=== PATIENT | female | born 1965 | race Caucasian/White ===

== ENCOUNTER 2021-03-03 21:10 | Emergency (ER) | payer BC ==
[~2021-03-03] VITALS: Ht 162.6 cm; Wt 67.0 kg
--- NOTE | 2021-03-03 21:12 | PHYS DOC ---
Past History Past Medical History: Anxiety, Depression (JODIE HOLLOWAY MD) General Adult HPI: HPI: ".. I am having thoughts of suicide.. I had this problem before.. have been hospitalized for it... " Patient is a 56 year old female who presents with above hx and complaints anxiety and depression. Patient has had previous hospitalizations for alcohol withdrawal and suicidal ideation. No recent travel. No specific ill contacts. Currently has developed plan on how to commit suicide but has not actively engaged the plans. No history immunosuppression. (JODIE HOLLOWAY MD) Review of Systems: Review of Systems: Constitutional: Denies fever or chills Eyes: Denies change in visual acuity HENT: Denies nasal congestion or sore throat Respiratory: Denies cough or shortness of breath Cardiovascular: Denies chest pain or edema GI: Denies abdominal pain, nausea, vomiting, bloody stools or diarrhea : Denies dysuria Musculoskeletal: Denies back pain or joint pain Integument: Denies rash Neurologic: Denies headache, focal weakness or sensory changes Endocrine: Denies polyuria or polydipsia Lymphatic: Denies swollen glands Psychiatric: Planes of depression or anxiety (JODIE HOLLOWAY MD) Family History: Family History: Noncontributory to presentation (JODIE HOLLOWAY MD) Current Medications: Current Meds: See nursing for home meds (JODIE HOLLOWAY MD) Allergies: Allergies: No known drug allergies (JODIE HOLLOWAY MD) Physical Exam: PE: Constitutional: Well developed, well nourished, moderate emotional distress, non-toxic appearance. [] HENT: Normocephalic, atraumatic, bilateral external ears normal, oropharynx moist, no oral exudates, nose normal. [] Eyes: PERRLA, EOMI, conjunctiva mild injection, no discharge. [] Neck: Normal range of motion, no tenderness, supple, no stridor. [] Cardiovascular:Heart rate regular rhythm, no murmur [] Lungs & Thorax: Bilateral breath sounds equal apex auscultation [] Abdomen: Bowel sounds normal, soft, no tenderness, no masses, no pulsatile masses. [] Skin: Warm, dry, no erythema, no rash. [] Back: No tenderness, no CVA tenderness. [] Extremities: No tenderness, no cyanosis, no clubbing, ROM intact, no edema. [] Neurologic: Alert and oriented X 3, normal motor function, normal sensory function, no focal deficits noted. [] Psychologic: Affect anxious, depressed , judgement normal, . (JODIE HOLLOWAY MD) EKG: EKG: My interpretation of EKG shows a sinus tachycardia 102 beats per his minute. No other acute morphology or findings of STEMI of contralateral changes. Time of EKG is 21 59 hours . No findings of U waves[] (JODIE HOLLOWAY MD) Radiology/Procedures: Radiology/Procedures: [][address] [address] IMAGING REPORT Signed PATIENT: MARCO RANKIN GACCOUNT: [id number] : 1965 LOCATION: ER AGE: 56 SEX: F EXAM STATUS: REG ER ORD. PHYSICIAN: JODIE HOLLOWAY MD REASON: htn, tachy PROCEDURE: PORTABLE CHEST 1V EXAMINATION: XR CHEST 1V CLINICAL HISTORY: Hypertension, tachycardia EXAM DATE/TIME: 03/03/2021 10:31 PM COMPARISON: 05/06/2010 FINDINGS: Lines, Tubes, and Devices: None. Cardiomediastinal Silhouette: Within normal limits. Lungs and Pleura: No evidence of focal airspace consolidation or pleural effusion. Pulmonary vasculature unremarkable. Bones and Soft Tissues: No acute osseous abnormality. IMPRESSION: No evidence of acute cardiopulmonary abnormality or significant interval change. Electronically signed by: Melecio Burgess DO (03/04/2021 12:12 AM) [facility] DICTATED AND SIGNED BY: MELECIO BURGESS DO DATE: 03/04/2110 CC: JODIE HOLLOWAY MD; PCP,NO ~MTH0 0 (JODIE HOLLOWAY MD) Heart Score: C/O Chest Pain: No HEART Score for Chest Pain: HEART Score for Chest Pain Response (Comments) Value History Moderately Suspicious 1 ECG Nonspecific Repolarizatio 1 Age >45 - < 65 1 Risk Factors 1 or 2 Risk Factors 1 Troponin < Normal Limit 0 Total 4 Risk Factors: Risk Factors: DM, Current or recent (<one month) smoker, HTN, HLP, family history of CAD, obesity. Risk Scores: Score 0 - 3: 2.5% MACE over next 6 weeks - Discharge Home Score 4 - 6: 20.3% MACE over next 6 weeks - Admit for Clinical Observation Score 7 - 10: 72.7% MACE over next 6 weeks - Early Invasive Strategies (JODIE HOLLOWAY MD) C/O Chest Pain: N/A (SHERRY ZEPEDA MD) Course & Med Decision Making: Course & Med Decision Making Pertinent Labs and Imaging studies reviewed. (See chart for details) Patient's hypokalemia supplemented with 40 mEq IV and 40 mEq p.o. 0700 hrs. after supplementation. Pending COVID and supplemented potassium before Psych placement. Possible Bed opening and [facility] this Am after [address] Zepeda at shift change pending Psych bed opening and correction of potassium. Impression: 1. Depression 2. Anxiety 3 Suicidal Ideation 4. Hypokalemia 2.8 5. Mild Elevation of LFT AST 192/ALT 163 6. UTI [] (JODIE HOLLOWAY MD) Course & Med Decision Making Patient was given extended release potassium increase, discussed with pharmacy and will use the effervescent immediate release potassium to increase patient's potassium level. Patient states she has a history of hypokalemia Potassium 3-3.9, medically cleared for psychiatric facility, nurse to fax patient's information to [place]. Pending acceptance to facility at shift change. (SHERRY ZEPEDA MD) Dragon Disclaimer: Dragon Disclaimer: This electronic medical record was generated, in whole or in part, using a voice recognition dictation system. (JODIE HOLLOWAY MD) Departure Departure: Impression: Primary Impression: Suicidal ideations Additional Impression: Hypokalemia [facility] Condition: STABLE Referrals: PCP,NO (PCP) Patient Instructions: Hypokalemia-Brief Scripts Potassium Chloride (POTASSIUM CHLORIDE ) 20 Meq Tablet.er 20 MEQ PO DAILY for SUPPLEMENT for 5 Days, #5 TAB Prov: SHERRY ZEPEDA MD 03/04/21 Cephalexin (KEFLEX) 500 Mg Capsule 500 MG PO TID for uti, #30 CAP Prov: JODIE HOLLOWAY MD 03/04/21 Dragon Disclaimer This chart was dictated in whole or in part using Voice Recognition software in a busy, high-work load, and often noisy Emergency Department environment. It may contain unintended and wholly unrecognized errors or omissions. (JODIE HOLLOWAY MD) Dragon Disclaimer This chart was dictated in whole or in part using Voice Recognition software in a busy, high-work load, and often noisy Emergency Department environment. It may contain unintended and wholly unrecognized errors or omissions. (JODIE HOLLOWAY MD) JODIE HOLLOWAY MD Mar 03, 2021 21:12 SHERRY ZEPEDA MD Mar 04, 2021 16:20
[2021-03-03 22:20] LABS: BASO % 0 % (0-3); EOS % 0 % (0-3); HEMATOCRIT 39.9 % (36.0-47.0); HEMOGLOBIN 13.9 g/dL (12.0-15.5); LYMPH # 1.7 x10^3/uL (1.0-4.8); LYMPH % 17 % (24-48); MEAN CORPUSCULAR HEMOGLOBIN 33 pg (25-35); MEAN CORPUSCULAR HGB CONC 35 g/dL (31-37); MEAN CORPUSCULAR VOLUME 95 fL (79-100); MONO # 0.7 x10^3/uL (0.0-1.1); MONO % 7 % (0-9); NEUT # 7.8 x10^3uL (1.8-7.7); NEUT % 76 % (31-73); PLATELET COUNT 221 x10^3/uL (140-400); RED BLOOD COUNT 4.19 x10^6/uL (3.50-5.40); RED CELL DISTRIBUTION WIDTH 12.7 % (11.5-14.5); WHITE BLOOD COUNT 10.3 x10^3/uL (4.0-11.0)
[2021-03-03 22:28] LABS: CLARITY,URINE CLOUDY; COLOR,URINE AMBER
[2021-03-03 22:29] LABS: BILIRUBIN,URINE MOD (NEG); GLUCOSE,URINE NEG (NEG); NITRITE,URINE NEG (NEG); UROBILINOGEN,URINE 0.2 mg/dL (0.2 mg/dL)
[2021-03-03 22:30] LABS: BACTERIA,URINE MANY /HPF (0-FEW); BARBITURATES NEG (NEG); BENZODIAZEPINES NEG (NEG); CANNABINOIDS NEG (NEG); COCAINE NEG (NEG); METHADONE NEG (NEG); OPIATES NEG (NEG); PHENCYCLIDINE NEG (NEG); SQUAMOUS EPITHELIAL CELL,UR MOD /LPF; WBC,URINE >40 /HPF (0-4)
[2021-03-03 22:35] LABS: ALBUMIN 4.3 g/dL (3.4-5.0); CALCIUM 9.5 mg/dL (8.5-10.1); CREATININE 0.7 mg/dL (0.6-1.0); DIRECT BILIRUBIN 0.3 mg/dL (0.0-0.2); GFR 86.9; MAGNESIUM 2.4 mg/dL (1.8-2.4); TOTAL BILIRUBIN 0.9 mg/dL (0.2-1.0); TOTAL PROTEIN 8.1 g/dL (6.4-8.2)
[2021-03-03 22:40] LABS: AMPHETAMINE/METHAMPHETAMINE NEG (NEG); ETHANOL < 10 mg/dL (0-10); SALIC 2.2 mg/dL (2.8-20.0)
[2021-03-03 22:42] LABS: ACETAMIN < 2.0 mcg/mL (10-30); POTASSIUM 2.8 mmol/L (3.5-5.1)
--- NOTE | 2021-03-03 23:19 | NUR ---
Patient talking to Jeanie from the PAT team
--- NOTE | 2021-03-03 23:54 | EKG ---
[address] [address] Test Date: 2021-03-03 Test Time: 21:59:52 Pat Name: MARCO RANKIN Department: Room: Gender: F [employer]: MERRY : 1965 Requested By: JODIE HOLLOWAY Order Number: [id number] Reading MD: Rigo Jeronimo Measurements Intervals [place] Rate: 102 P: 22 DC: 112 QRS: 10 QRSD: 102 T: 39 QT: 350 QTc: 461 Interpretive Statements SINUS TACHYCARDIA Electronically Signed On 03-06-2021 12:56:54 PHP MYSQL DEVELOPER by Rigo Jeronimo
--- NOTE | 2021-03-04 00:14 | RAD ---
EXAMINATION: XR CHEST 1V CLINICAL HISTORY: Hypertension, tachycardia EXAM DATE/TIME: 03/03/2021 10:31 PM COMPARISON: 05/06/2010 FINDINGS: Lines, Tubes, and Devices: None. Cardiomediastinal Silhouette: Within normal limits. Lungs and Pleura: No evidence of focal airspace consolidation or pleural effusion. Pulmonary vasculat ure unremarkable. Bones and Soft Tissues: No acute osseous abnormality. IMPRESSION: No evidence of acute cardiopulmonary abnormality or significant interval change. Electronically signed by: Melecio Boateng DO (03/04/2021 12:12 AM) [facility]
[2021-03-04] MEDS ORDERED: CEPH500C PO (02:57)
[2021-03-04] MEDS ORDERED: POTASSIUM CHLORIDE 20MEQ 100 ML IV SCH (03:00)
[2021-03-04] MEDS ORDERED: IV RINGERS SOLUTION,LACTATED 1,000 ML IV ONE (03:30)
[2021-03-04] MEDS ORDERED: POTASSIUM CHLORIDE 20 MEQ TABLET.ER. PO ONE ×3 (03:30→12:15)
[2021-03-04] MEDS ORDERED: CEPHALEXIN 250 MG CAPSULE PO ONE (03:30)
[2021-03-04] MEDS: POTASSIUM CHLORIDE 10MEQ 100 ML IV SCH ×3 (03:49→08:54)
[2021-03-04 06:43] LABS: CALCIUM 8.7 mg/dL (8.5-10.1); CREATININE 0.6 mg/dL (0.6-1.0); GFR 103.8
[2021-03-04 06:50] LABS: POTASSIUM 2.7 mmol/L (3.5-5.1)
[2021-03-04] MEDS ORDERED: MAGNESIUM SULFATE 1GM 100 ML IV ONE (07:00)
[2021-03-04] MEDS ORDERED: POTASSIUM BICARB 20 MEQ EFFERVESCENT TABLET. PO ONE ×2 (12:15→14:15)
[2021-03-04] MEDS ORDERED: POTA20TA4 PO (17:35)
[2021-03-04 22:55] VITALS: BP 124/68
--- NOTE | 2021-03-05 11:38 | NUR ---
ATTEMPTED TO REACH PATIENT WITH COVID RESULTS. NO ANSWER. MAILBOX FULL
== END 2021-03-04 23:00 ==
LOC: ER 21:10
DX: R45.851 Suicidal ideations (principal); E87.6 Hypokalemia; N39.0 Urinary tract infection, site not specified; F41.9 Anxiety disorder, unspecified; F32.9 Major depressive disorder, single episode, unspecified; R79.89 Other specified abnormal findings of blood chemistry; Z20.822 Contact with and (suspected) exposure to COVID-19
CPT/HCPCS: 36415; 71045; 80048; 80076; 80307; 80329; 81001; 83735; 84132; 84484; 85025; 87086; 87426; 93005; 96365; 96366; 96367; 99285; G0480; J3475; J3480; J7120; U0003; 96368

== ENCOUNTER 2021-05-23 07:08 | Emergency (ER) | payer BC ==
[~2021-05-23] VITALS: Ht 162.6 cm; Wt 63.0 kg
[~2021-05-23 07:08] MED LIST: CEPH500C PO; POTA20TA4 PO
[2021-05-23] MEDS ORDERED: ONDANSETRON PF 4 MG/2 ML VIAL. IVP ONE (07:15)
[2021-05-23] MEDS ORDERED: FAMOTIDINE 20 MG/2 ML VIAL IVP ONE (07:15)
[2021-05-23] MEDS ORDERED: IV NORMAL SALINE 1,000ML 1,000 ML IV SCH (07:15)
[2021-05-23] MEDS ORDERED: METOCLOPRAMIDE HCL 10 MG/2 ML VIAL. IVP ONE (07:30)
[2021-05-23] MEDS ORDERED: PANTOPRAZOLE IV 40 MG VIAL. IVP ONE (07:30)
--- NOTE | 2021-05-23 07:32 | EKG ---
[address] [address] Test Date: 2021-05-23 Test Time: 07:28:41 Pat Name: MARCO RANKIN Department: Room: Gender: F Sueding Machine Operator: EMPERATRIZ : 1965 Requested By: LUCILLE AUSTIN Order Number: [id number] Reading MD: Bird Jordan Measurements Intervals [place] Rate: 133 P: 66 NC: 92 QRS: -39 QRSD: 126 T: 149 QT: 336 QTc: 501 Interpretive Statements SINUS TACHYCARDIA NON SPECIFIC INTRAVENTRICULAR BLOCK NON SPECIFIC ST-T WAVE CHANGES Electronically Signed On 05-23-2021 16:26:09 UNIFORM DESIGNER by Bird Jordan
[2021-05-23 07:41] LABS: BASO % 0 % (0-3); EOS % 0 % (0-3); HEMATOCRIT 44.7 % (36.0-47.0); HEMOGLOBIN 15.4 g/dL (12.0-15.5); LYMPH # 1.3 x10^3/uL (1.0-4.8); LYMPH % 8 % (24-48); MEAN CORPUSCULAR HEMOGLOBIN 32 pg (25-35); MEAN CORPUSCULAR HGB CONC 34 g/dL (31-37); MEAN CORPUSCULAR VOLUME 93 fL (79-100); MONO # 1.2 x10^3/uL (0.0-1.1); MONO % 8 % (0-9); NEUT # 13.3 x10^3uL (1.8-7.7); NEUT % 84 % (31-73); PLATELET COUNT 309 x10^3/uL (140-400); RED BLOOD COUNT 4.79 x10^6/uL (3.50-5.40); RED CELL DISTRIBUTION WIDTH 13.1 % (11.5-14.5); WHITE BLOOD COUNT 15.8 x10^3/uL (4.0-11.0)
--- NOTE | 2021-05-23 07:48 | PHYS DOC ---
Past History Past Medical History: Anxiety, Depression Past Surgical History: Other Additional Past Surgical Histo: breast augmentation Alcohol Use: Sober General Adult EDM: Chief Complaint: NAUSEA/VOMITING/DIARRHEA HPI: HPI: 56-year-old female past medical history alcoholism, anxiety and depression with history of suicidal ideations in February 2021 (admitted to psych facility) presents the ED brought by EMS with complaints of nausea, vomiting and upper ab dominal pain for the past 3 days. Reports her last drink of alcohol was on . States she does not drink daily but usually has a pint of liquor every other day. Has been drinking consecutively for the past 2 and half years (relapsed after rehab) but in total, for more than ten years. Has been vaccinated for COVID. No history of COVID-19 infection. Past surgical history of breast augmentation. Is never required blood transfusion. No history of GI bleeding or known liver cirrhosis. Is not on any anticoagulants. Is not a primary care physician or take any routine prescribed medications. Review of Systems: Review of Systems: Constitutional: Denies fever or chills Eyes: Denies change in visual acuity HENT: Denies nasal congestion or sore throat Respiratory: Denies cough or shortness of breath Cardiovascular: Denies chest pain or edema GI: Denies bloody stools or diarrhea : Denies dysuria or vaginal bleeding Musculoskeletal: Denies back pain or joint pain Integument: Denies rash or diaphoresis Neurologic: Denies headache, focal weakness or sensory changes Endocrine: Denies polyuria or polydipsia Lymphatic: Denies swollen glands Psychiatric: Denies depression or anxiety Current Medications: Current Meds: Current Medications Medications (Trade) Dose Ordered Sig/Pablo Start Time Stop Time Status Last Admin Dose Admin Famotidine (Pepcid Vial) 20 mg 1X ONCE 05/23/21 07:15 05/23/21 07:16 DC Metoclopramide HCl (Reglan Vial) 10 mg 1X ONCE 05/23/21 07:30 05/23/21 07:36 DC Ondansetron HCl (Zofran) 4 mg 1X ONCE 05/23/21 07:15 05/23/21 07:16 DC Pantoprazole Sodium (Protonix Vial) 80 mg 1X ONCE 05/23/21 07:30 05/23/21 07:36 DC Sodium Chloride 1,000 ml @ 1,000 mls/hr Q1H 05/23/21 07:15 05/23/21 08:14 Allergies: Allergies: Allergies Coded Allergies Type Severity Reaction Last Updated Verified No Known Drug Allergies 03/03/21 No Physical Exam: PE: Constitutional: Appears uncomfortable but is afebrile and nontoxic. HENT: Normocephalic, atraumatic, brown dried emesis on lips, dry cracked tongue, smells of alcohol Eyes: EOMI, conjunctiva normal, no discharge. Neck: Normal range of motion, supple, Cardiovascular: S1/2 present, tachycardic Lungs & Thorax: Speaking in full sentences, bilateral equal chest rise, no tach ypnea or increased work of breathing Abdomen: soft, mild epigastric tenderness, no Davalos sign, no McBurney's point tenderness, no rigidity or guarding, melena present and emesis bag Skin: Warm, dry, no erythema, no rash. [] Extremities: No tenderness, no cyanosis, no lower extremity edema, tremulous Neurologic: Alert and oriented X 3, normal motor function, normal sensory functi on, no focal deficits noted. [] Psychologic: Calm mood, normal affect EKG: EKG: Sinus tachycardia 132 bpm, no axis deviation, QRS 126, QTc 501, no T wave inversion, no ST elevation or ST depression, no active chest pain Radiology/Procedures: Radiology/Procedures: IMAGING REPORT Signed PATIENT: MARCO RANKIN GACCOUNT: [id number] : 1965 LOCATION: ER AGE: 56 SEX: F EXAM STATUS: REG ER ORD. PHYSICIAN: LUCILLE AUSTIN DO REASON: epigastric abd pain, OMNI 300, 75ml PROCEDURE: CT ABD PELV W/ IV CONTRST ONLY CT abdomen pelvis with contrast. HISTORY: Epigastric abdominal pain CT abdomen pelvis was done using 75 mL Omnipaque 300 contrast. Lung bases are clear. There is mild fatty change in the liver. There is decreased density in the liver adjacent to the gallbladder which could be a prominent fatty liver change or a small lesion, ultrasound would be of benefit. There is decreased density along the falciform ligament which can be more prominent focal fatty infiltration again ultrasound could be of benefit. No other liver lesion is noted. Adrenal glands are normal. Pancreas is normal. There is no mass or hydronephrosis in the kidneys. There is no retroperitoneal adenopathy. There is a small hiatus hernia. There is mild enhancement and thickening of the wall the distal esophagus, esophagitis can have this pattern. There is no small bowel obstruction. Appendix is normal. There is a uterine leiomyoma towards the fundus on the right. Ovaries are unremarkable. There is no free fluid free air. There is mild diverticulosis without diverticulitis. IMPRESSION: 1. Mild fatty change in the liver. 2. Hypodense areas adjacent the gallbladder falciform ligament in the liver possible more prominent focal fatty liver change of benefit. 3. Small hiatus hernia 4. Mild thickening the wall the esophagus with enhancement possible esophagitis. 5. Uterine leiomyoma. PQRS Compliance Statement: One or more of the following individualized dose reduction techniques were utilized for this examination: 1. Automated exposure control 2. Adjustment of the mA and/or kV according to patient size 3. Use of iterative reconstruction technique Electronically signed by: Preston Norris MD (05/23/2021 8:35 AM) [id number] DICTATED AND SIGNED BY: PRESTON NORRIS MD DATE: 05/23/[address] CC: PCP,NO; LUCILLE AUSTIN DO ~MTH0 0 IMAGING REPORT Signed PATIENT: MARCO RANKIN GACCOUNT: [id number] : 1965 LOCATION: ER AGE: 56 SEX: F EXAM STATUS: REG ER ORD. PHYSICIAN: LUCILLE AUSTNI DO REASON: n/v PROCEDURE: PORTABLE CHEST 1V EXAM: Chest, single view. HISTORY: Nausea and vomiting COMPARISON: 03/03/2021 FINDINGS: A frontal view of the chest obtained. There is no infiltrate, pleural effusion or pneumothorax. The heart is normal in size. IMPRESSION: No acute pulmonary finding. Electronically signed by: Sammie Menodza MD (05/23/2021 8:27 AM) [id number] DICTATED AND SIGNED BY: SAMMIE MENDOZA MD DATE: 05/23/[address] CC: PCP,AMISHA; LUCILLE AUSTIN DO ~MTH0 0 Heart Score: C/O Chest Pain: No Risk Factors: Risk Factors: DM, Current or recent (<one month) smoker, HTN, HLP, family history of CAD, obesity. Risk Scores: Score 0 - 3: 2.5% MACE over next 6 weeks - Discharge Home Score 4 - 6: 20.3% MACE over next 6 weeks - Admit for Clinical Observation Score 7 - 10: 72.7% MACE over next 6 weeks - Early Invasive Strategies Course & Med Decision Making: Course & Med Decision Making Pertinent Labs and Imaging studies reviewed. (See chart for details) Concern for acute GI bleed in the setting of prerenal acute kidney injury and hypercalcemia. Patient started on PPI drip and infusion. Will transfer [facility] for GI consultation and higher level of care. Accepted by Dr. Chaves. Patient stable at time of transfer. I have spoken with the patient and/or caregivers. I have explained the patient 's condition, diagnosis and treatment plan based on the information available to me at this time. I have answered the patient's and/or caregivers questions and answered any concerns. The patient and/or caregivers have as good an understanding of the patient's diagnosis, condition and treatment plan as can be expected at this point. The patient has been stabilized within the capability of the emergency department. The patient will be transported for further care and management or will be moved to an observation or inpatient service. I have communicated with the staff or medical practitioner taking over this patient's care. Michelle Disclaimer: Michelle Disclaimer: This electronic medical record was generated, in whole or in part, using a voice recognition dictation system. Departure Departure: Impression: Primary Impression: Acute upper GI bleed Additional Impressions: ARIANE (acute kidney injury) Hyperkalemia Disposition: HOME / SELF CARE / HOMELESS (accepted to [facility] by Dr. Chaves) Condition: GUARDED Referrals: PCP,AMISHA (PCP) LUCILLE AUSTIN DO May 23, 2021 07:48
[2021-05-23 07:57] LABS: ALBUMIN 4.8 g/dL (3.4-5.0); CREATININE 4.1 mg/dL (0.6-1.0); DIRECT BILIRUBIN 0.3 mg/dL (0.0-0.2); GFR 11.3; POTASSIUM 3.5 mmol/L (3.5-5.1); TOTAL BILIRUBIN 0.9 mg/dL (0.2-1.0)
[2021-05-23] MEDS ORDERED: IOHEXOL 300 MG/ML 75 ML VIAL. IV ONE (08:00)
[2021-05-23 08:04] LABS: CALCIUM 12.8 mg/dL (8.5-10.1)
[2021-05-23 08:06] VITALS: BP 105/78
[2021-05-23] MEDS ORDERED: PANTOPRAZOLE IV 80 MG in IV NORMAL SALINE 100ML 100 ML IV SCH (08:15)
--- NOTE | 2021-05-23 08:29 | RAD ---
EXAM: Chest, single view. HISTORY: Nausea and vomiting COMPARISON: 03/03/2021 FINDINGS: A frontal view of the chest obtained. There is no infiltrate, pleural effusion or pneumotho rax. The heart is normal in size. IMPRESSION: No acute pulmonary finding. Electronically signed by: Sammie Toussaint MD (05/23/2021 8:27 AM) [id number]
[2021-05-23 08:32] LABS: % LYMPHS 8 % (24-48); % MONOS 5 % (0-10); % SEGS 87 % (35-66); PLT ESTIMATE ADEQUATE (ADEQUATE)
--- NOTE | 2021-05-23 08:37 | RAD ---
CT abdomen pelvis with contrast. HISTORY: Epigastric abdominal pain CT abdomen pelvis was done using 75 mL Omnipaque 300 contrast. Lung bases are clear. There is mild fa tty change in the liver. There is decreased density in the liver adjacent to the gallbladder which co uld be a prominent fatty liver change or a small lesion, ultrasound would be of benefit. There is dec reased density along the falciform ligament which can be more prominent focal fatty infiltration agai n ultrasound could be of benefit. No other liver lesion is noted. Adrenal glands are normal. Pancreas is normal. There is no mass or hydronephrosis in the kidneys. There is no retroperitoneal adenopathy . There is a small hiatus hernia. There is mild enhancement and thickening of the wall the distal eso phagus, esophagitis can have this pattern. There is no small bowel obstruction. Appendix is normal. T here is a uterine leiomyoma towards the fundus on the right. Ovaries are unremarkable. There is no fr ee fluid free air. There is mild diverticulosis without diverticulitis. IMPRESSION: 1. Mild fatty change in the liver. 2. Hypodense areas adjacent the gallbladder falciform ligament in the liver possible more prominent f ocal fatty liver change of benefit. 3. Small hiatus hernia 4. Mild thickening the wall the esophagus with enhancement possible esophagitis. 5. Uterine leiomyoma. PQRS Compliance Statement: One or more of the following individualized dose reduction techniques were utilized for this examinat ion: 1. Automated exposure control 2. Adjustment of the mA and/or kV according to patient size 3. Use of iterative reconstruction technique Electronically signed by: Preston Norris MD (05/23/2021 8:35 AM) [id number]
[2021-05-23] MEDS ORDERED: IV NORMAL SALINE 1,000ML 1,000 ML IV ONE ×2 (13:45)
== END 2021-05-23 13:48 | disposition short-term general hospital (02) ==
LOC: ER 07:08
DX: K92.2 Gastrointestinal hemorrhage, unspecified (principal); N17.9 Acute kidney failure, unspecified; E87.5 Hyperkalemia; F41.9 Anxiety disorder, unspecified; F32.9 Major depressive disorder, single episode, unspecified; F10.20 Alcohol dependence, uncomplicated; Z20.822 Contact with and (suspected) exposure to COVID-19; Y90.0 Blood alcohol level of less than 20 mg/100 ml
CPT/HCPCS: 36415; 71045; 74177; 80048; 80076; 83605; 83690; 84484; 85007; 85025; 85384; 85610; 85730; 87040; 87426; 93005; 96361; 96365; 96366; 96375; 99285; C9113; G0480; J2060; J2405; J2765; J3490; J7030; Q9967